=== PATIENT | male | born 1955 | race Caucasian/White ===

== ENCOUNTER → 2017-08-02 | Outpatient (CLI) | payer OTHER ==
[~2017-08-02] MED LIST: ASPIRIN EC81 M1; ASPIRIN325 PO; ATORVASTATIN CA10 MG PO; FISH OIL 1,001000 MG PO; FLECAINIDE ACET50 M1 PO; FOLIC ACID 40400 MCG PO; FOLIC ACID1 MG PO; LIPITOR 10 MG10 M1 PO; VITAMIN C + RO500 MG PO; VITCB500GO PO
== END ==
LOC: M.ULTRA 15:47
DX: I86.1 Scrotal varices (principal); N43.3 Hydrocele, unspecified; N50.3 Cyst of epididymis; N50.812 Left testicular pain

== ENCOUNTER → 2017-09-27 | Outpatient (CLI) | payer OTHER ==
--- NOTE | 2017-09-27 18:08 | 2DMMODE ---
[place] [address] 2 D/M-MODE ECHOCARDIOGRAM Name: RIC RAMOS Room: [facility]#: [id number] Admission: 09/27/17 Attend Phys: Jimenez Gant, Discharge: Date of : 57 Date of Service: 09/27/17 1807 Report #: [id number] THIS REPORT FOR: //name// APPROVED REPORT Study performed: 09/27/2017 13:11:27 EXAM: Comprehensive 2D, Doppler, and color-flow Echocardiogram Patient Location: Out-Patient Status: routine BSA: 1.99 HR: 58 bpm BP: 115/68 mmHg Other Information Study Quality: Good Indications Atrial Fibrillation 2D Dimensions LVEF(%): 66.65 (>50%) IVSd: 9.07 (7-11mm) LVOT Diam: 20.85 (18-24mm) LVDd: 41.56 mm PWd: 11.84 (7-11mm) Ascending Ao: 31.38 (22-36mm) LVDs: 26.41 (25-40mm) Aortic Root: 27.16 mm Hernadez's LVEF: 66.65 % Volumes Left Atrial Volume (Systole) LA ESV Index: 11.40 mL/m2 Aortic Valve AoV Peak Hugo.: 1.61 m/s AO Peak Gr.: 10.41 mmHg LVOT Max P.05 mmHg AO Mean Gr.: 6.32 mmHg LVOT Mean P.77 mmHg LVOT Max V: 1.33 m/s AO V2 VTI: 34.25 cm LVOT Mean V: 0.90 m/s SOFIA (VTI): 3.10 cm2 LVOT V1 VTI: 31.09 cm Mitral Valve E/A Ratio: 1.23 MV Decel. Time: 246.56 [place] [address] 2 D/M-MODE ECHOCARDIOGRAM Name: RICHARDRIC Heller Room: [facility]#: [id number] Admission: 09/27/17 Attend Phys: Jimenez Gant, Discharge: Date of : 57 Date of Service: 09/27/17 1807 Report #: [id number] MV E Max Hugo.: 0.69 m/s MV PHT: 71.50 ms MVA (PHT): 3.08 cm2 TDI E/Lateral E': 5.75 E/Medial E': 8.63 Medial E' Hugo.: 0.08 m/s Lateral E' Hugo.: 0.12 m/s Pulmonary Valve PV Peak Hugo.: 1.13 m/s PV Peak Gr.: 5.14 mmHg Tricuspid Valve RAP Estimate: 5.00 mmHg TR Peak Gr.: 23.19 mmHg RVSP: 28.19 mmHg PA Pressure: 28.19 mmHg Left Ventricle The left ventricle is normal size. There is normal LV segmental wall motion. There is normal left ventricular wall thickness. Left ventricular systolic function is normal. The left ventricular ejection fraction is within the normal range. LVEF is 60-65%. The left ventricular diastolic function is normal. Right Ventricle The right ventricle is normal size. The right ventricular systolic function is normal. Atria The left atrium size is normal. The right atrium size is normal. Aortic Valve The aortic valve is normal in structure. No aortic regurgitation is present. There is no aortic valvular stenosis. Mitral Valve The mitral valve is normal in structure. Trace mitral regurgitation. No evidence of mitral valve stenosis. Tricuspid Valve The tricuspid valve is normal in structure. Mild tricuspid regurgitation. Pulmonic Valve The pulmonary valve is normal in structure[place] [address] 2 D/M-MODE ECHOCARDIOGRAM Name: RIC RAMOS Room: [facility]#: [id number] Admission: 09/27/17 Attend Phys: Jimenez Gant, Discharge: Date of : 57 Date of Service: 09/27/17 1807 Report #: [id number] regurgitation. Great Vessels The aortic root is normal in size. IVC is normal in size and collapses with >50% inspiration Pericardium There is no pericardial effusion. <Conclusion> The left ventricle is normal size. There is normal left ventricular wall thickness. Left ventricular systolic function is normal. The left ventricular ejection fraction is within the normal range. LVEF is 60-65%. The left ventricular diastolic function is normal. The right ventricle is normal size. The left atrium size is normal. The aortic valve is normal in structure. The mitral valve is normal in structure. Trace mitral regurgitation. The tricuspid valve is normal in structure. Mild tricuspid regurgitation. IVC is normal in size and collapses with >50% inspiration There is no pericardial effusion. There is normal LV segmental wall motion. <ELECTRONICALLY SIGNED> By: Kirill Garcia MD, FACC 09/27/171806 06 06 Kirill Garcia MD, FACC /INF
== END ==
LOC: M.CRD 12:39
DX: I07.1 Rheumatic tricuspid insufficiency (principal); I48.0 Paroxysmal atrial fibrillation

== ENCOUNTER 2018-07-03 03:54 | Inpatient (IN) | payer OTHER ==
[~2018-07-03] VITALS: Ht 182.9 cm; Wt 81.6 kg
[2018-07-03 04:01] VITALS: BP 155/77
[2018-07-03] MEDS ORDERED: LOPRESSOR50 PO (04:03)
[2018-07-03] MEDS ORDERED: FLECAINIDE ACET50 M1 PO (04:14)
[2018-07-03] MEDS ORDERED: LIPITOR10 MG PO (04:14)
[2018-07-03] MEDS ORDERED: NEURONTIN 300300 M1 PO (04:15)
[2018-07-03] MEDS ORDERED: TOPROL XL100 MG PO (04:15)
[2018-07-03] MEDS ORDERED: FLOMAX0.4 MG PO (04:15)
[2018-07-03] MEDS ORDERED: NEPHROCAPS SOFT1 CAP PO (04:15)
[2018-07-03] MEDS ORDERED: FISH OIL 1,001000 M2 PO (04:15)
[2018-07-03] MEDS ORDERED: ASPIRIN325 PO (04:16)
[2018-07-03] MEDS ORDERED: MOBIC15 MG PO (04:16)
[2018-07-03 04:23] LABS: ABSOLUTE EOSINOPHILS 0.3 thou/uL (0.0-0.7); ABSOLUTE LYMPHOCYTES 1.5 thou/uL (0.8-5.3); ABSOLUTE MONOCYTES 0.4 thou/uL (0.0-1.2); ABSOLUTE NEUTROPHILS 3.1 thou/uL (1.6-8.1); BASOPHILS 0.6 %; EOSINOPHILS 4.8 %; HEMATOCRIT 42.3 % (42.0-52.0); HEMOGLOBIN 14.6 gm/dL (14.0-18.0); LYMPHOCYTES 28.7 %; MCH 31.7 pg (26.0-34.0); MCHC 34.6 g/dL (28.0-37.0); MCV 91.8 fL (80.0-100.0); MONOCYTES 7.2 %; MPV 6.8 fl. (7.2-11.1); NUCLEATED RBCS 0 /100WBC; PLATELET COUNT* 248 thou/uL (150-400); POLYS 58.7 %; RBC 4.61 mil/uL (4.50-6.00); RDW-CV 12.5 % (10.5-14.5); WBC 5.3 thou/uL (4.0-11.0)
[2018-07-03 04:35] LABS: PROTIME 10.2 Seconds (9.20-11.50)
[2018-07-03 04:49] LABS: ALKALINE PHOSPHATASE 86 U/L (46-116); ANION GAP 9 mmol/L (7-16); BUN 26 mg/dL (7-18); CALCIUM 9.1 mg/dL (8.5-10.1); CHLORIDE 103 mmol/L (98-107); CO2 27 mmol/L (21-32); CREATININE 1.5 mg/dL (0.6-1.3); GLUCOSE 105 mg/dL (70-99); LIPASE 190 U/L (73-393); NT-PRO BRAIN NAT PEPTIDE 94 pg/mL (<300); POTASSIUM 3.7 mmol/L (3.5-5.1); SGOT 21 U/L (15-37); SGPT 35 U/L (30-65); SODIUM 139 mmol/L (136-145); TOTAL BILIRUBIN 0.3 mg/dL (<0.1-1.0); TOTAL PROTEIN 7.6 g/dL (6.4-8.2); TROPONIN-I LEVEL <0.06 ng/mL (<0.06)
[2018-07-03 09:12] VITALS: BP 116/63
[2018-07-03 12:25] VITALS: BP 103/55
[2018-07-03 14:19] VITALS: BP 131/64
[2018-07-03 14:30] VITALS: BP 125/60
[2018-07-03 19:40] VITALS: BP 150/76
[2018-07-04] VITALS: BP 118/53
[2018-07-04 03:50] VITALS: BP 155/79
[2018-07-04 04:56] LABS: ABSOLUTE NEUTROPHILS 3.4 thou/uL (1.6-8.1); HEMOGLOBIN 13.9 gm/dL (14.0-18.0); PLATELET COUNT* 239 thou/uL (150-400)
[2018-07-04 04:58] LABS: ABSOLUTE EOSINOPHILS 0.2 thou/uL (0.0-0.7); ABSOLUTE LYMPHOCYTES 1.2 thou/uL (0.8-5.3); ABSOLUTE MONOCYTES 0.4 thou/uL (0.0-1.2); BASOPHILS 0.7 %; EOSINOPHILS 3.5 %; HEMATOCRIT 40.3 % (42.0-52.0); LYMPHOCYTES 22.8 %; MCH 31.4 pg (26.0-34.0); MCHC 34.4 g/dL (28.0-37.0); MCV 91.3 fL (80.0-100.0); MPV 6.9 fl. (7.2-11.1); NUCLEATED RBCS 0 /100WBC; RBC 4.41 mil/uL (4.50-6.00); RDW-CV 12.4 % (10.5-14.5); WBC 5.2 thou/uL (4.0-11.0)
[2018-07-04 05:13] LABS: CALCIUM 8.6 mg/dL (8.5-10.1); CREATININE 1.2 mg/dL (0.6-1.3); POTASSIUM 4.2 mmol/L (3.5-5.1)
[2018-07-04 05:45] LABS: CHOLESTEROL 174 mg/dL (<200); HDL CHOLESTEROL 69 mg/dL (>40); LDL CHOLESTEROL 92 mg/dL (<100); TC:HDL 2.5 Ratio (Not establshd); TRIGLYCERIDE 69 mg/dL (<150); VLDL 14 mg/dL (<40)
[2018-07-04 05:48] LABS: SERUM ASSESSMENT Clear
[2018-07-04 08:17] VITALS: BP 133/55
--- NOTE | 2018-07-04 11:07 | EKG ---
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 : 1955 Requested By: Janee Son Order Number: [id number] MD: Kirill Garcia Measurements Intervals [place] Rate: 63 P: 69 LA: 170 QRS: 49 QRSD: 101 T: 69 QT: 417 QTc: 427 Interpretive Statements Sinus rhythm Probable left atrial enlargement Compared to ECG 12/20/2013 03:23:24 Sinus bradycardia no longer present Electronically Signed On 07-04-2018 11:07:07 CDT by Kirill Garcia [email or web address] <ELECTRONICALLY SIGNED> By: Kirill Garcia MD, [facility] 07/04/18 1107 0359 0359 Kirill Garcia MD, FACC /EPI
--- NOTE | 2018-07-04 11:16 | EKG ---
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
[2018-07-04 16:00] VITALS: BP 121/61
--- NOTE | 2018-07-04 16:23 | 2DMMODE ---
[place] [address] 2 D/M-MODE ECHOCARDIOGRAM Name: RICHARDRIC MAHIN Room: [address] IN [facility]#: [id number] Admission: 07/03/18 Attend Phys: Evan Ross MD Discharge: Date of : 57 Date of Service: 07/04/18 1623 Report #: [id number] THIS REPORT FOR: //name// APPROVED REPORT Study performed: 07/04/2018 14:31:05 EXAM: Comprehensive 2D, Doppler, and color-flow Echocardiogram Patient Location: In-Patient Room #: 219 Status: routine BSA: 1.99 HR: 76 bpm BP: 133/55 mmHg Rhythm: NSR Other Information Study Quality: Good Indications Chest Pain 2D Dimensions IVSd: 10.37 (7-11mm) LVOT Diam: 20.46 (18-24mm) LVDd: 41.98 mm PWd: 9.62 (7-11mm) Ascending Ao: 32.53 (22-36mm) LVDs: 25.78 (25-40mm) Aortic Root: 29.70 mm Volumes Left Atrial Volume (Systole) LA ESV Index: 32.40 mL/m2 Aortic Valve AoV Peak Hugo.: 1.67 m/s AO Peak Gr.: 11.13 mmHg LVOT Max P.98 mmHg AO Mean Gr.: 6.25 mmHg LVOT Mean P.02 mmHg LVOT Max V: 1.58 m/s AO V2 VTI: 35.23 cm LVOT Mean V: 1.03 m/s SOFIA (VTI): 3.01 cm2 LVOT V1 VTI: 32.22 cm Mitral Valve E/A Ratio: 1.07 MV Decel. Time: 176.12 ms MV E Max Hugo.: 0.99 m/[place] [address] 2 D/M-MODE ECHOCARDIOGRAM Name: RICHARDRIC STOCKTON Room: [address] IN [facility]#: [id number] Admission: 07/03/18 Attend Phys: Evan Ross MD Discharge: Date of : 57 Date of Service: 07/04/18 1623 Report #: [id number] PHT: 51.07 ms MVA (PHT): 4.31 cm2 TDI E/Lateral E': 7.07 E/Medial E': 8.25 Medial E' Hugo.: 0.12 m/s Lateral E' Hugo.: 0.14 m/s Pulmonary Valve PV Peak Hugo.: 1.32 m/s PV Peak Gr.: 6.94 mmHg Left Ventricle The left ventricle is normal size. There is normal LV segmental wall motion. There is normal left ventricular wall thickness. Left ventricular systolic function is normal. The left ventricular ejection fraction is within the normal range. LVEF is 65%. The left ventricular diastolic function is normal. Right Ventricle The right ventricle is normal size. The right ventricular systolic function is normal. Atria The left atrium size is normal. The right atrium size is normal. Aortic Valve Mild aortic valve sclerosis. No aortic regurgitation is present. There is no aortic valvular stenosis. Mitral Valve The mitral valve is normal in structure. There is no mitral valve regurgitation noted. No evidence of mitral valve stenosis. Tricuspid Valve The tricuspid valve is normal in structure. Unable to assess PA pressure. Trace tricuspid regurgitation. Pulmonic Valve The pulmonary valve is normal in structure. There is no pulmonic valvular regurgitation. Great Vessels The aortic root is normal in size. IVC is normal in size and collapses >50% [place] [address] 2 D/M-MODE ECHOCARDIOGRAM Name: RIC RAMOS Room: [address] IN [facility]#: [id number] Admission: 07/03/18 Attend Phys: Evan Ross MD Discharge: Date of : 57 Date of Service: 07/04/18 1623 Report #: [id number] Pericardium There is no pericardial effusion. <Conclusion> The left ventricle is normal size. There is normal left ventricular wall thickness. Left ventricular systolic function is normal. The left ventricular ejection fraction is within the normal range. LVEF is 65%. The left ventricular diastolic function is normal. The right ventricle is normal size. The left atrium size is normal. Mild aortic valve sclerosis. No aortic regurgitation is present. There is no aortic valvular stenosis. The mitral valve is normal in structure. The tricuspid valve is normal in structure. IVC is normal in size and collapses >50% with inspiration. There is no pericardial effusion. There is normal LV segmental wall motion. <ELECTRONICALLY SIGNED> By: Kirill Garcia MD, FACC 07/04/18 1623 1623 1623 Kirill Garcia MD, FACC /INF
--- NOTE | 2018-07-04 16:27 | CON ---
[address] [address] CONSULTATION Name: RIC RAMOS Room: [address] IN M.R.#: [id number] Admission: 07/03/18 Attend Phys: Evan Ross MD Discharge: Date of : 57 Report #: [id number] THIS REPORT FOR: //name// CC: Austin Azulkaleejosh Evan Ross DATE OF SERVICE: 07/03/2018 CARDIOLOGY CONSULTATION HISTORY OF PRESENT ILLNESS: I was asked by Dr. Simpson to see this 62-year-old white male in cardiology consultation for evaluation and treatment of chest pain. This man has known paroxysmal atrial fibrillation and has had chest pains on and off for about 10 years. He has not had one this severe long lasting. He had a 4-hour episode of pain that started at 11:00 p.m. last night. He finally came to the ER at 3:00 a.m., the pain was continuous, he said it was substernal and across the whole anterior chest. It was a dull ache. He said it was a 5 on a scale of 10. He said it was a bit worse with activity at times and may even have been initiated with activity. He is not sure, it was better with rest and it did occur at rest. There was no associated shortness of breath, nausea, vomiting or diaphoresis. There was no relationship to food. He is not sure whether or not it responded to nitroglycerin as he did not have sublingual nitroglycerin, he did have nitroglycerin paste placed when he got to the ER and the pain went away at 6:00 a.m., I am not sure what time the paste was placed. The pain did radiate a bit into his back. Did not go down the neck or arms. He has had some dyspnea on exertion in the last 30 days. He has been having issues with epididymitis. He does not have a history of orthopnea or PND or edema or dyspnea on exertion previously. He has had syncope in the past about 4 episodes, he is not sure exactly why. Cardiac risk factors include hypercholesterolemia and a family history of coronary artery disease. He has not been a smoker, does not have diabetes or high blood pressure. He has not had renal disease or peripheral vascular disease. He has never had a stroke or TIA. He has not had carotid disease or claudication or open or nonhealing wounds. He has not had pain with his atrial fibrillation in the past. PAST MEDICAL HISTORY: Otherwise, unremarkable. He does have hyperlipidemia. He is said to have a sick sinus syndrome. He seems to be intolerant of beta blockers. He is only able to take small doses. SOCIAL HISTORY: He is . 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 Does not smoke, drink or use illegal drugs. FAMILY HISTORY: There is family history of atrial fibrillation. He does have family members who suddenly and there are family members who had pacemaker. ALLERGIES: He is [place] [address] CONSULTATION Name: RIC RAMOS Room: [address] IN ..#: [id number] Admission: 07/03/18 Attend Phys: Evan Ross MD Discharge: Date of : 57 Report #: [id number] HOME MEDICATIONS: Include aspirin 325 mg daily, atorvastatin 10 mg daily, fish oil 1000 mg daily, flecainide 100 mg b.i.d., gabapentin 300 mg b.i.d., meloxicam 15 mg daily, metoprolol or Toprol-XL 100 mg p.r.n. and Flomax 0.4 mg daily. REVIEW OF SYSTEMS: Positive for cough, palpitations, chest discomfort, shortness of breath with exercise, nearly passing out, seasonal allergies, medical allergies, PENICILLIN allergy, wearing glasses and decreased hearing, otherwise his review of systems is negative for some 40 different complaints in 14 different system categories. Please see review of system form for details and negatives in review of systems. PHYSICAL EXAMINATION: GENERAL: He presents as a well-developed, well-nourished white male in no acute distress. VITAL SIGNS: Pulse was 65 and regular, blood pressure is 120/80, respirations are 16 and regular. He was clinically afebrile. HEENT: Head was atraumatic. Eyes clear. NECK: Supple. There is no jugular venous distention or hepatojugular reflux. Thyroid is not enlarged. There is no adenopathy. SKIN: Warm and dry. Mucous membranes are moist. LUNGS: Clear to auscultation and percussion. HEART: Revealed normal first and second heart sound. There is soft S4. There is no S3. There are no murmurs, rubs, thrills, heaves or gallops. PMI is nondisplaced. ABDOMEN: Soft, flat, nontender, no palpable masses, no organomegaly. EXTREMITIES: Reveal no cyanosis, clubbing or edema. LABORATORY DATA: Chest x-ray was unremarkable. D-dimer was negative. His initial EKG was unremarkable and the heart rate was 63. A subsequent EKG that was done 4 hours after he came to the ER at 3:00 a.m. revealed a heart rate was up to 95. He was on nitroglycerin paste at this point. However, there were nonspecific T-wave abnormalities in the inferior and lateral leads. Troponins are negative x 2. The third is pending shortly. IMPRESSION: 1. Chest pain. 2. Abnormal EKG. 3. Paroxysmal atrial fibrillation. 4. Hyperlipidemia. 5. Sick sinus syndrome. RECOMMENDATION: He should have a nuclear stress test and an echo. [address] [address] CONSULTATION Name: RIC RAMOS Room: [address] IN [facility].#: [id number] Admission: 07/03/18 Attend Phys: Evan Ross MD Discharge: Date of : 57 Report #: [id number] Thank you very much for asking me to see the patient. If there are any questions, please feel free to contact me. <ELECTRONICALLY SIGNED> By: Corbin rCaig MD, FACC 07/04/18 1627 1156 0239F. Clem Boyer MD, FACC /nt
--- NOTE | 2018-07-04 16:44 | CARDNUC ---
[place] [address] CARDIAC NUCLEAR IMAGING REPORT Name: RICHARDRIC STOCKTON Room: [address] IN [facility]#: [id number] Admission: 07/03/18 Attend Phys: Evan Ross MD Discharge: Date of : 57 Date of Service: 07/04/18 1644 Report #: [id number] THIS REPORT FOR: //name// APPROVED REPORT Imaging Protocol: Stress Tc-99m/Rest Tc-99m 1 day Study performed: 07/03/2018 14:48:00 Indication: Chest pain, SSS, Near Syncope. Patient Location: In-Patient Room #: 219 Stress Tech: Nu Rhodes Stress Nurse: Meg Quintero RN Ht: 6 ft 0 in Wt: 170 lbs BSA: 1.99 m2 BMI: 23.05 Medical History Medical History: Angina, Atrial Fibrillation, Fatigue, Hyperlipidemia, Weakness, Near Syncope, SSS. Medications: ASA 325 Mg, NTG, Atorvastatin, Flecainide, Home med - Metoprolol. Allergies: Amoxicillin, Trihydrate, Augmentin. Cardiac Risk Factors: Age, FHX of CAD, Hyperlipidemia, AFib. Previous Cardiac Procedures: None Pretest Chest Pain Characteristics: No chest pain Exercise History: Indeterminate Physical Disabilities: Generalized weakness/fatigue/pain, edema. Meds Held (24 hrs): Metoprolol. Resting Data Rest SPECT myocardial perfusion imaging was performed in supine position 60 minutes following the intravenous injection of 9.0 mCi of Tc-99m Sestamibi. Time of rest injection: 10:10 The images were gated to evaluate regional wall motion and calculate left ventricular ejection fraction. Administration Route: IV Administration Site: Left Wrist Pharmacologic Stress Pharmacologic stress test was performed by injecting Regadenoson 0.4 mg IV push over 10-15 seconds immediately followed by the intravenous injection of 27.0 mCi of Tc-99m Sestamibi. Time of stress injection: 12:10 [place] [address] CARDIAC NUCLEAR IMAGING REPORT Name: RICHARDRIC Room: [address]#: [id number] Admission: 07/03/18 Attend Phys: Evan Ross MD Discharge: Date of : 57 Date of Service: 07/04/18 1644 Report #: [id number] Administration Route: IV Administration Site: Left Arm Heart Rate at time of stress injection: 85 bpm. Gated Stress SPECT was performed 45 minutes after stress injection. The images were gated to evaluate regional wall motion and calculate left ventricular ejection fraction. Prone imaging was performed. Stress Test Details Stress Test: Pharmacologic stress testing performed using 0.4 mg of regadenoson per 5 mL given IV over 10 seconds. Reason for pharmacologic stress test: edema, pain, generalized weakness/fatigue.. HR Max Heart Rate (APMHR): 159 bpm Resting HR: 60 bpm Target HR (85% APMHR): 135 bpm Max HR Achieved: 88 bpm % of APMHR: 55 Recovery HR: 81 bpm HR response to stress: Normal HR response to stress BP Resting BP: 136/77 mmHg Max BP: 85/40 mmHg Recovery BP: 144/75 mmHg BP response to stress: Normal blood pressure response to stress. ECG Resting ECG: Sinus Rhythm Stress ECG: Sinus Rhythm ST Change: None Recovery ECG: Sinus Rhythm Clinical Reason for Termination: Completed protocol Stress Symptoms: lightheaded, SOA, tingling in hands, near syncope. Exercise duration: 0 min 0 sec Exercise capacity: 1.00 METs Nurse Comments 62 year old male inpatient presented with nausea, HX of CP, SSS, AFib and near syncope episodes. Patient reported having pain and fatigue/weakness and unable to walk on treadmill. Patient reported lightheadedness increasing and feeling as if he could faint, [place] [address] CARDIAC NUCLEAR IMAGING REPORT Name: RIC RAMOS Room: [address]#: [id number] Admission: 07/03/18 Attend Phys: Evan Ross MD Discharge: Date of : 57 Date of Service: 07/04/18 1644 Report #: [id number] placed patient in supine position while B/P became hypotensive. Patient improved during recovery with PO caffeine. Patient was transported via wheelchair by staff to Nuclear Medicine for images. Patient was stable with no complaints at that time. Stress ECG Conclusion Negative Study Quality Study: Good Artifact: No artifact Lung Uptake: Normal Study Data At rest, the left ventricular ejection fraction was 83%.. Post stress, the left ventricular ejection was 86%.. SSS: 7 SRS: 6 SDS: 1 Perfusion STRESS SPECT images show a small mild intensity inferior defect which is noted to be fixed when compared to the SPECT rest images. There is uniform uptake of tracer in all other segments. The prone set shows normalization of the inferior defect indicating it is likely artifact. No reversible defects are seen. Images were reviewed using [employer]. Wall Motion normal wall motion Nuclear Conclusion ECG Findings: negative for ischemia Clinical Findings: negative for ischemia Nuclear Findings: negative for ischemia Exercise Capacity: not assessed Left Ventricular Function: normal Risk Study: low Negative perfusion stress test for ischemia or infarct <Conclusion> Negative <ELECTRONICALLY SIGNED> By: Jimenez Gant MD, FACC 07/04/18 1644 1644 43 Jimenez Gant MD, FACC /INF
[2018-07-04 17:12] VITALS: BP 121/61
[2018-07-05 02:06] LABS: GLYCOHEMOGLOBIN (HGB A1C) 5.2 % (4.8-5.6)
== END 2018-07-04 17:40 | disposition home or self-care (01) | DRG 392 ==
LOC: M.ERS 03:54 → M.TBA-ER 05:19 → M.2W 05:19
PROVIDERS: Emergency Medicine; ADMIT Family Medicine
DX: K21.9 Gastro-esophageal reflux disease without esophagitis (principal); D68.59 Other primary thrombophilia; I48.2 Chronic atrial fibrillation; Z88.8 Allergy status to other drugs, medicaments and biological substances; I48.0 Paroxysmal atrial fibrillation; N18.3 Chronic kidney disease, stage 3 (moderate); I49.5 Sick sinus syndrome; E78.5 Hyperlipidemia, unspecified; Z88.1 Allergy status to other antibiotic agents; Z79.899 Other long term (current) drug therapy; Z82.49 Family history of ischemic heart disease and other diseases of the circulatory system

== ENCOUNTER 2018-07-10 05:22 | Emergency (ER) | payer OTHER ==
[~2018-07-10] VITALS: Ht 188 cm; Wt 90.7 kg
[~2018-07-10 05:22] MED LIST changes: +FISH OIL 1,001000 M2 PO; +FLOMAX0.4 MG PO; +LIPITOR10 MG PO; +LOPRESSOR50 PO; +MOBIC15 MG PO; +NEPHROCAPS SOFT1 CAP PO; +NEURONTIN 300300 M1 PO; +TOPROL XL100 MG PO
[2018-07-10 05:48] LABS: ABSOLUTE EOSINOPHILS 0.3 thou/uL (0.0-0.7); ABSOLUTE LYMPHOCYTES 1.7 thou/uL (0.8-5.3); ABSOLUTE MONOCYTES 0.4 thou/uL (0.0-1.2); ABSOLUTE NEUTROPHILS 3.6 thou/uL (1.6-8.1); BASOPHILS 0.6 %; EOSINOPHILS 4.4 %; HEMATOCRIT 41.3 % (42.0-52.0); HEMOGLOBIN 14.4 gm/dL (14.0-18.0); LYMPHOCYTES 28.2 %; MCH 31.8 pg (26.0-34.0); MCHC 34.8 g/dL (28.0-37.0); MCV 91.4 fL (80.0-100.0); MONOCYTES 7.4 %; MPV 6.4 fl. (7.2-11.1); NUCLEATED RBCS 0 /100WBC; PLATELET COUNT* 288 thou/uL (150-400); POLYS 59.4 %; RBC 4.52 mil/uL (4.50-6.00); RDW-CV 12.4 % (10.5-14.5); WBC 6.1 thou/uL (4.0-11.0)
[2018-07-10 06:08] LABS: ALBUMIN 3.6 g/dL (3.4-5.0); ALKALINE PHOSPHATASE 90 U/L (46-116); ANION GAP 10 mmol/L (7-16); BUN 19 mg/dL (7-18); CALCIUM 8.9 mg/dL (8.5-10.1); CHLORIDE 103 mmol/L (98-107); CO2 28 mmol/L (21-32); CREATININE 1.1 mg/dL (0.6-1.3); GLUCOSE 91 mg/dL (70-99); LIPASE 202 U/L (73-393); MAGNESIUM 2.1 mg/dL (1.8-2.4); NT-PRO BRAIN NAT PEPTIDE 113 pg/mL (<300); POTASSIUM 3.7 mmol/L (3.5-5.1); SGOT 21 U/L (15-37); SGPT 33 U/L (30-65); SODIUM 141 mmol/L (136-145); TOTAL BILIRUBIN 0.6 mg/dL (<0.1-1.0); TOTAL PROTEIN 7.5 g/dL (6.4-8.2); TROPONIN-I LEVEL <0.06 ng/mL (<0.06)
[2018-07-10] MEDS ORDERED: HYDROCODONE-AP1 EAC6 PO (06:36)
[2018-07-10] MEDS ORDERED: CARAFATE1 GM PO (06:36)
[2018-07-10 06:48] VITALS: BP 124/67
--- NOTE | 2018-07-10 12:09 | EKG ---
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
== END 2018-07-10 06:48 | disposition home or self-care (01) ==
LOC: M.ERS 05:22
PROVIDERS: Emergency Medicine Emergency Medical Services
DX: R07.89 Other chest pain (principal); E78.00 Pure hypercholesterolemia, unspecified; I48.91 Unspecified atrial fibrillation; Z88.1 Allergy status to other antibiotic agents; Z88.8 Allergy status to other drugs, medicaments and biological substances

== ENCOUNTER → 2018-07-27 | Outpatient (CLI) | payer OTHER ==
[~2018-07-27] MED LIST changes: +CARAFATE1 GM PO; +HYDROCODONE-AP1 EAC6 PO
== END ==
LOC: M.NUC 06:52
DX: R10.13 Epigastric pain (principal); K31.89 Other diseases of stomach and duodenum; K21.0 Gastro-esophageal reflux disease with esophagitis; K22.0 Achalasia of cardia

== ENCOUNTER 2020-03-24 17:24 | Emergency (ER) | payer OTHER ==
[~2020-03-24] VITALS: Ht 182.9 cm; Wt 77.0 kg
--- NOTE | ~2020-03-24 | EMS ---
[facility] [address] [place] [address] EMS Patient Care Report Name: RIC RAMOS [id number] Admission: 03/24/20 Attend Phys: Discharge: Date of : 57 Report #: [id number] THIS REPORT FOR: //name// Report Transmitted: 03/24/2020 18:02 EMS Care Summary [facility] Incident [id number] @ 03/24/2020 16:48 Incident Location [address] [place] [address] Patient RIC RAMOS Male, 64 Years 1955 Patient Address [address] [place] [address] Patient History Atrial Fibrillation, Patient Allergies Augmentin, Patient Medications Lisinopril, Metoprolol, Finasteride, Flecainide, Alfuzosin, ASA, Omeprazole, Atorvastatin, Chief Complaint stroke Disposition Transported No Lights/Van Dispatch Reason Stroke/CVA Transported To [facility] Narrative Dispatched to a residence for 64y/o male poss. stroke. Pt. family states that at 1600 pt. took out the trash and when he came back in he had "hiccups" and would not speak. Pt. continued to be less coherent over the next hour and 911 [facility] [address] [place] [address] EMS Patient Care Report Name: RIC RAMOS Room: [facility]#: [id number] Admission: 03/24/20 Attend Phys: Discharge: Date of : 57 Report #: [id number] was called. Upon arrival pt. was alert but would not follow commands or answer questions. CPSS showed bi lateral arm drift, slurred speech, and unable to determine facial droop. When asked if pt .could tell us his name pt. stated "no". Pt. was also unable to answer Place, time, or event. Due to sudden onset and failed CPSS, stroke was suspected. Pt. was transported to [facility] for emergency stroke services. Initial Vitals @17:05P: 48,R: 16,BP: 113/68,GCS: 13,Glucose: 122,SpO2: 97,Revised Trauma: 12,AR Suspected: false @17:15P: 50,R: 16,BP: 126/66,GCS: 13,SpO2: 98,Revised Trauma: 12, @17:25P: 51,R: 16,BP: 111/54,GCS: 13,SpO2: 98,Revised Trauma: 12, Assessments @17:00MENTAL:Confused,SKIN:No Abnormalities,HEENT:Head/Face: No Abnormalities,Eyes: No Abnormalities,Neck/Airway: No Abnormalities,LUNG SOUNDS:General: No Abnormalities,Left Upper: No Abnormalities,Right Upper: No Abnormalities,Left Lower: No Abnormalities,Right Lower: No Abnormalities,ABDOMEN:General: No Abnormalities,Left Upper: No Abnormalities,Right Upper: No Abnormalities,Left Lower: No Abnormalities,Right Lower: No Abnormalities,PELVIS//GI:No Abnormalities,EXTREMITIES:Left Arm: No Abnormalities,Right Arm: No Abnormalities,Left Leg: No Abnormalities,Right Leg: No Abnormalities,PULSE:NEURO:Slurred Speech,Weakness Left-Sided,Weakness Right-Sided, Impression Stroke Procedures @17:10Saline Lock 10cc (18 ga) Site: Forearm-LeftResponse: UnchangedSucceeded@17:0512-Lead ECGResponse: UnchangedSucceeded Timeline 16:44,Call Received 16:48,Dispatched 16:50,En Route 16:59,Initial Responder On Scene 16:59,On Scene 17:00,At Patient 17:05,BP: 113/68 M,PULSE: 48,RR: 16 R,SPO2: 97 Ox,ETCO2: ,B,PAIN: ,GCS: 13, 17:05,12-Lead ECG,Response: UnchangedSucceeded, 17:10,Saline Lock 10cc 18 ga Site: Forearm-Left,Response: UnchangedSucceeded, 17:15,Depart Scene 17:15,BP: 126/66 M,PULSE: 50,RR: 16 R,SPO2: 98 Ox,ETCO2: ,BG: ,PAIN: ,GCS: 13, 17:25,BP: 111/54 M,PULSE: 51,RR: 16 R,SPO2: 98 Ox,ETCO2: ,BG: ,PAIN: ,GCS: 13, [place] [address] EMS Patient Care Report Name: RIC RAMOS Room: [facility] Haritha#: [id number] Admission: 03/24/20 Attend Phys: Discharge: Date of : 57 Report #: [id number] 17:34,At Destination 17:38,Transfer Patient 18:19,Call Closed 18:19,In District Disclaimer v1.1 Copyright 2020 [employer] This EMS Care Summary contains data elements from the applicable legal record (which may be displayed differently). It is designed to provide pertinent information for the following purposes: continuity of care, clinical quality, and state data reporting. The complete legal record is available to ED staff and administrators of the receiving hospital in [employer]'s Patient Tracker. All data is provided "as is."
[2020-03-24 17:56] LABS: ABSOLUTE EOSINOPHILS 0.2 thou/uL (0.0-0.7); ABSOLUTE LYMPHOCYTES 1.8 thou/uL (0.8-5.3); ABSOLUTE MONOCYTES 0.3 thou/uL (0.0-1.2); ABSOLUTE NEUTROPHILS 1.9 thou/uL (1.6-8.1); BASOPHILS 0.8 %; EOSINOPHILS 4.3 %; HEMATOCRIT 40.8 % (42.0-52.0); HEMOGLOBIN 14.3 gm/dL (14.0-18.0); MCHC 35.1 g/dL (28.0-37.0); MCV 91.1 fL (80.0-100.0); MONOCYTES 6.9 %; MPV 6.8 fl. (7.2-11.1); NUCLEATED RBCS 0 /100WBC; PLATELET COUNT* 206 thou/uL (150-400); RBC 4.47 mil/uL (4.50-6.00); RDW-CV 12.7 % (10.5-14.5); WBC 4.1 thou/uL (4.0-11.0)
[2020-03-24 18:04] LABS: CREATININE 1.3 mg/dL (0.6-1.3); POTASSIUM 4.8 mmol/L (3.5-5.1)
[2020-03-24 18:09] LABS: ALBUMIN 3.8 g/dL (3.4-5.0); PROTIME 10.4 Seconds (9.20-11.50); TOTAL BILIRUBIN 0.3 mg/dL (<0.1-1.0); TOTAL PROTEIN 6.9 g/dL (6.4-8.2)
[2020-03-24 22:40] VITALS: BP 147/73
--- NOTE | 2020-03-25 13:48 | EKG ---
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 : 1955 Requested By: Sudarshan Lantigua Order Number: [id number] MD: Corbin Craig Measurements Intervals [place] Rate: 70 P: 76 IN: 189 QRS: 33 QRSD: 102 T: 55 QT: 423 QTc: 457 Interpretive Statements Sinus rhythm artifact noted Probable left atrial enlargement Minimal ST elevation, anterior leads Compared to ECG 07/10/2018 05:29:54 no change Electronically Signed On 03-25-2020 13:48:49 [employer] by Corbin Craig [email or web address] <ELECTRONICALLY SIGNED> By: Corbin Craig MD, [facility] 03/25/20 1348 1755 1755 Corbin Craig MD, [facility] /EPI
== END 2020-03-24 22:40 | disposition short-term general hospital (02) ==
LOC: M.ERS 17:24
PROVIDERS: Emergency Medicine Emergency Medical Services
DX: I63.9 Cerebral infarction, unspecified (principal); Z20.828 Contact with and (suspected) exposure to other viral communicable diseases; I48.91 Unspecified atrial fibrillation; E78.00 Pure hypercholesterolemia, unspecified; Z88.1 Allergy status to other antibiotic agents; Z88.8 Allergy status to other drugs, medicaments and biological substances; Z91.018 Allergy to other foods

== ENCOUNTER → 2020-06-11 | Outpatient (CLI) | payer OTHER ==
--- NOTE | 2020-06-13 17:06 | PATH ---
[address] [address] PATHOLOGY RPT PROCEDURE Name: RIC RAMOS [facility] [id number] Admission: 06/11/20 Date of : 57 Discharge: Report #: [id number] Path Case #: [id number] Note [facility] Accession Number: [id number] TESTS RESULT FLAG UNITS REF RANGE LAB Clinician Provided Cytology Information No. of containers..01 Other (Miscellaneous) Source: LEFT THYROID DIAGNOSIS: 02 LEFT THYROID NODULE (6.09 X 4.04 X 4.47 CM), IMAGE GUIDED FINE NEEDLE ASPIRATION BIOPSY: B[place]ES[place] CATEGORY II: BENIGN MODERATELY CELLULAR POPULATION OF BENIGN FOLLICULAR CELLS WITH ABUNDANT COLLOID AND SCATTERED HEMOSIDERIN LADEN MACROPHAGES CONSISTENT WITH ADENOMATOID NODULE. THIS INTERPRETATION INCLUDES EVALUATION OF A CELL BLOCK. Diagnosis provided b Franco Santos MD, Pathologist NPI- [id number] Signed out by: 03 Franco Santos MD, Pathologist NPI- [id number] Performed by: 01 Izzy Jc, Cellophane Tester ([facility]) Gross description: 01 20ML, CLEAR RED, 4FX 4AD /LCS 06/13/2020 1209 Local FLAG LEGEND: L-Low Normal,H-High Normal,LL-Alert Low,HH-Alert High <-Panic Low,>-Panic High,A-Abnormal,AA-Critical Abnormal Performed at: 01 [place] [id number] [facility] [address] [place] [address] Jaxon Rizzo MD, [address] [id number] Franco Santos MD, 03 [facility] [address] [place] [address] Franco Santos MD, Specimen Comment: A courtesy copy of this report has been sent to [phone] Specimen Comment: Report sent to Performed at: 01 [facility] [address] [place] [address] PATHOLOGY RPT PROCEDURE Name: RIC RAMOS [facility] [id number] Admission: 06/11/20 Date of : 57 Discharge: Report #: [id number] Path Case #: [id number] [address] [facility] [address], [place], [place] [id number] MD Jaxon Rizzo MD Phone: [phone]
== END | disposition home or self-care (01) ==
LOC: M.ULTRA 07:59
DX: E04.1 Nontoxic single thyroid nodule (principal); I48.91 Unspecified atrial fibrillation; Z98.890 Other specified postprocedural states; Z79.899 Other long term (current) drug therapy; Z79.01 Long term (current) use of anticoagulants; Z88.8 Allergy status to other drugs, medicaments and biological substances; Z86.73 Personal history of transient ischemic attack (TIA), and cerebral infarction without residual deficits